=== PATIENT | female | born 1985 | race Caucasian/White ===

== ENCOUNTER 2017-05-13 11:30 | Emergency (ER) | payer OTHER ==
--- NOTE | 2017-05-13 12:04 | ERPHSYRPT ---
- History of Present Illness Time Seen by Provider: 05/13/17 11:53 Source: patient, family Patient Subjective Stated Complaint: pt reports severe ear pain starting upon waking today. reports throat pain and cough for 2-3 days also. Triage Nursing Assessment: pt is aox3, pupils perrl, resps easy and non labored , expiratory wheezes heard to the right lower lobe posterior upon auscultation, intermittent cough noted upon exam that is non prodcutive in nature. radial pulses strong and equal. cap refill <3 seconds. pain localized to the right ear reported as pressure. no redness or drainage noted to the external right ear canal.pt denies any hearing diffilculty. pt is afebrile. Physician History: CC: right ear ache hx: 32 y/o patient, smoker, recently moved from [place]. She has cough, right ear ache, sore throat. No fever or chills. No drng from the ear. Severity: moderate ENT Location: ear (R) Allergies/Adverse Reactions: No Known Drug Allergies Allergy (Unverified 05/13/17 11:51) Hx Tetanus, Diphtheria Vaccination/Date Given: Yes Hx Influenza Vaccination/Date Given: No Hx Pneumococcal Vaccination/Date Given: No Immunizations Up to Date: Yes - Review of Systems Constitutional: Malaise, No Fever, No Chills Ears, Nose, & Throat: Ear Pain (right), Nose Congestion, Throat Pain, No Ear Discharge Respiratory: Cough Abdominal/Gastrointestinal: No Nausea, No Vomiting, No Diarrhea Skin: No Rash Neurological: No Headache - Past Medical History Pertinent Past Medical History: Yes Respiratory History: Asthma - Past Surgical History Past Surgical History: No - Social History Smoking Status: Current every day smoker How long have you smoked: 10 Drug Use: none Patient Lives Alone: No - Female History Hx Last Menstrual Period: 04/20/17 Hx Now: No - Nursing Vital Signs Nursing Vital Signs: Initial Vital Signs Temperature 98 F 05/13/17 11:39 Pulse Rate 100 H 05/13/17 11:39 Respiratory Rate 18 05/13/17 11:39 Blood Pressure 135/93 05/13/17 11:39 O2 Sat by Pulse Oximetry 100 05/13/17 11:39 Pain Scale Pain Intensity 10 - Physical Exam General Appearance: alert Eye Exam: bilateral eye: PERRL, EOMI Ear Exam: right ear: tenderness (pain with movement of pinna, red canal), left ear: auricle normal, canal normal, bilateral ear: TM normal Nasal Exam: normal inspection Throat Exam: moist mucus membranes (erythematous), No tonsillar exudate Neck Exam: normal inspection, non-tender, supple Cardiovascular/Respiratory Exam: regular rate/rhythm, wheezing Neurologic Exam: alert, oriented x 3, cooperative Skin Exam: warm, dry, No rash SpO2 Interpretation: normal SpO2: 100 Oxygen Delivery: Room Air - Course Nursing assessment & vital signs reviewed: Yes - Progress Progress Note: 05/13/17 12:01 Advised smoking cessation. Instr given. Counseled pt/family regarding: diagnosis, need for follow-up - Departure Time of Disposition: 12:01 Departure Disposition: Home Clinical Impression: Right otitis externa, Acute asthmatic bronchitis, Smoker Condition: Stable Critical Care Time: No Referrals: DOCTOR,NO FAMILY [NON-STAFF PHY W/O PRIVILEGES] - Instructions: Acute Bronchitis, Quitting Smoking, Outer Ear Infection (DC) Additional Instructions: Rx cortisporin Rx keflex Rx albuterol Rx prednisone- start Monday Prescriptions: Albuterol Sulfate [Albuterol Sulfate Hfa] 2 puff IH Q4-6HPRN PRN #1 [id number] PRN Reason: cough or wheeze Cephalexin Mh 500 mg [Keflex 500 mg] 1 cap PO QID #28 capsule Daren/Baci/Poly/Hc Ear Solution* [CORTISPORIN EAR DROPS Solution 1OML] 0 ml OT UD #1 bottle Prednisone 20 mg [Deltasone 20 mg] 2 tab PO DAILY #10 tablet
[2017-05-13] MEDS ORDERED: PROVENTIL 2.5 MG/3 ML NEB IH ONE ×2 (12:06→12:10)
[2017-05-13] MEDS ORDERED: KEFLEX 500 MG PO ONE (12:07)
[2017-05-13] MEDS ORDERED: DELTASONE 20 MG PO ONE (12:07)
[2017-05-13] MEDS ORDERED: KEFLEX 500 MG ONE (12:14)
[2017-05-13] MEDS ORDERED: DELTASONE 20 MG ONE (12:14)
[2017-05-13 12:45] VITALS: BP 130/88; PULSE 89; O2SAT 100
== END 2017-05-13 12:44 | disposition home or self-care (01) ==
LOC: ED 11:30
DX: H60.91 Unspecified otitis externa, right ear (principal); J45.901 Unspecified asthma with (acute) exacerbation; Z72.0 Tobacco use
CPT/HCPCS: 94150; 94640; 99283; 99284; A9270-GY

== ENCOUNTER 2020-07-15 02:01 | Emergency (ER) | payer MEDICAID, OTHER ==
[2020-07-15] MEDS ORDERED: Augmentin 875-125 Tablet PO STA (02:13)
[2020-07-15] MEDS ORDERED: TORAdol 30 mg Injection IM ONE (02:14)
[2020-07-15] MEDS ORDERED: TORAdol 30 mg Injection ONE (02:16)
[2020-07-15] MEDS ORDERED: Augmentin 875-125 Tablet ONE (02:16)
--- NOTE | 2020-07-15 02:21 | ERPHSYRPT ---
- History of Present Illness Time Seen by Provider: 07/15/20 02:16 Source: patient Physician History: Patient is a 35-year-old female presents to our ED with complaints of pain to the left lower jaw. Symptoms started yesterday. Patient states yesterday she felt some soreness in that area. However symptoms worsened today. Today she observed her left lower jaw was swollen. No trauma. No fever. No nausea or vomiting. Pain described as an ache that is well localized. Pain worse with mastication. Pain improved with rest. Patient tolerating oral secretions well. No nausea or vomiting no headache. No fever. Patient voices no other complaints or concerns at this time. Timing/Duration: yesterday Severity: moderate Modifying Factors: Improves With: other (Mastication.) Associated Symptoms: denies symptoms Allergies/Adverse Reactions: No Known Drug Allergies Allergy (Unverified 07/15/20 02:11) Hx Tetanus, Diphtheria Vaccination/Date Given: Yes Hx Influenza Vaccination/Date Given: No Hx Pneumococcal Vaccination/Date Given: No - Review of Systems Constitutional: No Symptoms, No Fever, No Chills Eyes: No Symptoms Ears, Nose, & Throat: No Symptoms Respiratory: No Symptoms, No Cough, No Dyspnea Cardiac: No Symptoms, No Chest Pain, No Edema, No Syncope Abdominal/Gastrointestinal: No Symptoms, No Abdominal Pain, No Nausea, No Vomiting, No Diarrhea Genitourinary Symptoms: No Symptoms, No Dysuria Musculoskeletal: No Symptoms, No Back Pain, No Neck Pain Skin: No Symptoms, No Rash Neurological: No Symptoms, No Dizziness, No Focal Weakness, No Sensory Changes Psychological: No Symptoms Endocrine: No Symptoms Hematologic/Lymphatic: No Symptoms Immunological/Allergic: No Symptoms All Other Systems: Reviewed and Negative - Past Medical History Pertinent Past Medical History: Yes Respiratory History: Asthma - Past Surgical History Past Surgical History: No - Social History Smoking Status: Current every day smoker How long have you smoked: 10 Drug Use: none Patient Lives Alone: No - Nursing Vital Signs Nursing Vital Signs: Initial Vital Signs Temperature 97.8 F 07/15/20 02:14 Pulse Rate 100 H 07/15/20 02:14 Respiratory Rate 22 07/15/20 02:14 Blood Pressure 131/98 07/15/20 02:14 O2 Sat by Pulse Oximetry 99 07/15/20 02:14 Pain Scale Pain Intensity 6 - Physical Exam General Appearance: no apparent distress, alert Eye Exam: PERRL/EOMI, eyes nml inspection Ears, Nose, Throat Exam: normal ENT inspection, TMs normal, pharynx normal, mo ist mucous membranes, other (Dental abscess tooth #18. No Henrry's angina. The tooth is carious. No fracture.) Neck Exam: normal inspection, non-tender, supple, full range of motion Respiratory Exam: normal breath sounds, lungs clear, No respiratory distress Cardiovascular Exam: regular rate/rhythm, normal heart sounds, normal peripheral pulses Gastrointestinal/Abdomen Exam: soft, normal bowel sounds, No tenderness, No mass Back Exam: normal inspection, normal range of motion, No CVA tenderness, No vertebral tenderness Extremity Exam: normal inspection, normal range of motion, pelvis stable Neurologic Exam: alert, oriented x 3, cooperative, normal mood/affect, sensation nml, No motor deficits Skin Exam: normal color, warm, dry, No rash Lymphatic Exam: No adenopathy SpO2 Interpretation: normal SpO2: 99 O2 Delivery: Room Air - Course Nursing assessment & vital signs reviewed: Yes Ordered Tests: Medication Summary Discontinued Medications Generic Name Dose Route Start Last Admin Trade Name Bashirq PRN Reason Stop Dose Admin Amoxicillin/Clavulanate Potassium 875 mg 07/15/20 02:13 07/15/20 02:23 Augmentin 875-125 Tablet PO 07/15/20 02:14 Not Given ONCE STA Amoxicillin/Clavulanate Potassium Confirm 07/15/20 02:16 Augmentin 875-125 Tablet Administered 07/15/20 02:17 Dose 875 mg .ROUTE .STK-MED ONE Amoxicillin/Clavulanate Potassium 500 mg 07/15/20 02:23 07/15/20 02:24 Augmentin 500-125 Tablet PO 07/15/20 02:24 500 mg STAT ONE Administration Ketorolac Tromethamine 30 mg 07/15/20 02:14 07/15/20 02:21 Toradol 30 Mg Injection IM 07/15/20 02:15 30 mg STAT ONE Administration Ketorolac Tromethamine Confirm 07/15/20 02:16 Toradol 30 Mg Injection Administered 07/15/20 02:17 Dose 30 mg .ROUTE .STK-MED ONE - Progress Progress: improved Progress Note: Patient has a dental with #18. Patient received a dose of Augmentin. Patient also received an IM dose of Toradol. Pain improved. No indication for further work-up at this time. A prescription for the same was forwarded to patient's pharmacy. Patient advised to follow-up with her dentist within 48 hours for reevaluation. There is a possibility that the tooth may need to be extracted. No indication for further work-up or treatment at this time. Will discharge home. 07/15/20 02:19 Counseled pt/family regarding: diagnosis, need for follow-up - Departure Departure Disposition: Home Clinical Impression: Pain, dental, Dental abscess, Carious teeth Condition: Stable Critical Care Time: No Referrals: SHRAVAN AUGUST [Primary Care Provider] - Instructions: Tooth Abscess (DC), Dental Pain (DC), Tooth Decay, Adult (DC) Additional Instructions: Discharge/Care Plan PURA ALVARES was seen on 07/15/20 in the Emergency Room. The patient was counseled regarding Diagnosis,Lab results, Imaging studies, need for follow up and when to return to the Emergency Room. Prescriptions given: Discharge Note I have spoken with the patient and/or caregivers. I have explained the patient's condition, diagnosis and treatment plan based on the information available to me at this time. I have answered the patient's and/or caregiver's questions and addressed any concerns. The patient and/or caregivers have as good understanding of the patient's diagnosis, condition and treatment plan as can be expected at this point. The vital signs have been stable. The patient's condition is stable and appropriate for discharge from the emergency department. The patient will pursue further outpatient evaluation with the primary care dayana agee or other designated or consulting physician as outlined in the discharge instructions. The patient and/or caregivers are agreeable to this plan of care and follow-up instructions have been explained in detail. The patient and/or caregivers have received these instruction. The patient/and or caregivers are aware that any significant change in condition or worsening of symptoms should prompt an immediate return to this or the closest emergency department or call 911. Prescriptions: Amox Tr/Potass Clav. 875 mg [Augmentin 875-125 Tablet] 875 mg PO BID 7 Da ys #14 tablet Ketorolac Tromethamine [Toradol] 10 mg PO TID 5 Days #15 tablet
[2020-07-15] MEDS ORDERED: Augmentin 500-125 Tablet PO ONE (02:23)
[2020-07-15 02:43] VITALS: BP 132/97; PULSE 91; O2SAT 98
== END 2020-07-15 02:45 | disposition home or self-care (01) ==
LOC: ED 02:01
DX: K02.9 Dental caries, unspecified (principal); L02.818 Cutaneous abscess of other sites
CPT/HCPCS: 96372; 99283; J1885; A9270-GY